=== PATIENT | male | born 1970 | race Asian ===

== ENCOUNTER 2017-01-24 16:07 | Emergency (ER) | payer OTHER ==
[~2017-01-24] VITALS: Ht 165.1 cm; Wt 70.8 kg
[2017-01-24 16:19] VITALS: BP 101/65
--- NOTE | 2017-01-24 17:28 | NUR ---
PATIENT IS A 46 YO MALE BIB SELF FOR RASH AND BLISTERES TO RIGHT HAND AWAKE AND ALERT ABLE TO AMBULATE NO ACUTE DISTRESS.
[2017-01-24] MEDS: predniSONE 20 MG TAB PO ONE (17:29)
--- NOTE | 2017-01-24 17:35 | NUR ---
PATIENT MEDICATED PER ORDER WAITING FOR DISPOSITION.
[2017-01-24 18:08] VITALS: BP 101/65
--- NOTE | 2017-01-24 18:09 | NUR ---
Patient discharged with v/s stable. Written and verbal after care instructions given and explained. Patient alert, oriented and verbalized understanding of instructions. Ambulatory with steady gait. All questions addressed prior to discharge. ID band removed. Patient advised to follow up with PMD. Rx of BACITRACIN/KEFLEX/BENDRYL/CORTIZONE given. Patient educated on indication of medication including possible reaction and side effects. Opportunity to ask questions provided and answered.
== END 2017-01-24 18:09 | disposition home or self-care (01) ==
LOC: MED 16:07
DX: R21 Rash and other nonspecific skin eruption (principal)
CPT/HCPCS: 99283; J7512